=== PATIENT | male | born 1985 | race Caucasian/White ===

== ENCOUNTER 2017-06-05 13:56 | Emergency (ER) | payer SELFPAY ==
[2017-06-05] MEDS ORDERED: ASPIRIN 81 MG CHEWABLE CTB ONE (14:01)
[2017-06-05] MEDS ORDERED: NITROGLYCERIN 0.4 MG TAB SL PRN (14:04)
[2017-06-05] MEDS ORDERED: ASPIRIN 81 MG CHEWABLE CTB PO STA (14:04)
[2017-06-05] MEDS ORDERED: SODIUM CHLORIDE 0.9% FLUSH 10 ML SOL IV PRN (14:04)
[2017-06-05] MEDS ORDERED: NITROGLYCERIN 0.4 MG TAB SL ONE (14:09)
[2017-06-05 14:25] LABS: CALCIUM 8.6 mg/dl (8.5-10.1); GLOM FILT RATE 77 mL/min (>60); SODIUM 141 mMol/L (136-145)
[2017-06-05] MEDS ORDERED: ALUMINUM/MAGNESIUM 30 ML SUS PO ONE (14:27)
[2017-06-05] MEDS ORDERED: LIDOCAINE HCL 2% (VISCOUS) 20 ML SOL MT ONE (14:27)
[2017-06-05] MEDS ORDERED: ALUMINUM/MAGNESIUM 30 ML SUS ONE (14:29)
[2017-06-05] MEDS ORDERED: LIDOCAINE HCL 2% (VISCOUS) 20 ML SOL ONE (14:29)
[2017-06-05 14:38] VITALS: TEMP 99.5; O2SAT 99
[2017-06-05 14:41] LABS: APPEARANCE,URINE Clear; BILIRUBIN,URINE NEGATIVE (NEGATIVE); COLOR,URINE Yellow; GLUCOSE, URINE (UA) NEGATIVE (NEGATIVE); KETONES,URINE NEGATIVE (NEGATIVE); LEUKOCYTE ESTERASE ,URINE NEGATIVE (NEGATIVE); NITRATE,URINE NEGATIVE (NEGATIVE); OCCULT BLOOD,URINE TRACE LYSED (NEG-TRACE); PH,URINE 5.5; UROBILINOGEN,URINE 0.2 (0.2-1.0 EU)
[2017-06-05 14:50] LABS: RBC,URINE NEG (0-3AV/HPF); WBC,URINE NEG (0-5AV/HPF)
[2017-06-05 15:08] LABS: HEMATOCRIT 46 % (39-53)
[2017-06-05 18:10] VITALS: BP 146/101; PULSE 113; RESP 18
[2017-06-08 08:22] LABS: MEAN CORPUSCULAR HGB CONC 34.6 gm/dl (32.0-36.0); MEAN CORPUSCULAR VOLUME 85 fL (80-100)
== END 2017-06-05 17:00 | disposition home or self-care (01) | DRG 313 ==
LOC: SUPCPDRO 13:56 → ED 13:56
DX: R07.9 Chest pain, unspecified (principal); F41.9 Anxiety disorder, unspecified; M25.512 Pain in left shoulder; R42 Dizziness and giddiness
CPT/HCPCS: 71045; 71275; 74160; 80048; 81001; 82550; 84484; 85025; 85378; 93005; 99285; Q9967; A9270-GY